=== PATIENT | male | born 1985 | race Caucasian/White ===

== ENCOUNTER 2016-08-08 03:22 | Emergency (ER) | payer MEDICAID | END 2016-08-08 04:50 | disposition home or self-care (01) | LOC: D.ER 03:22 | DX: S01.81XA Laceration without foreign body of other part of head, initial encounter (principal); Y04.2XXA Assault by strike against or bumped into by another person, initial encounter; Y93.89 Activity, other specified; Y92.89 Other specified places as the place of occurrence of the external cause; G40.909 Epilepsy, unspecified, not intractable, without status epilepticus; F17.200 Nicotine dependence, unspecified, uncomplicated ==

== ENCOUNTER 2017-09-17 18:07 | Emergency (ER) | payer MEDICAID | END 2017-09-17 19:41 | disposition home or self-care (01) | LOC: D.ER 18:07 | DX: B02.9 Zoster without complications (principal) ==

== ENCOUNTER 2017-12-06 08:37 | Emergency (ER) | payer MEDICAID ==
[~2017-12-06] VITALS: Ht 182.9 cm; Wt 75.0 kg
[2017-12-06 09:02] VITALS: Ht 182.9 cm; Wt 75.0 kg
[2017-12-06] MEDS ORDERED: ZOVIRAX800 MG PO (10:46)
[2017-12-06] MEDS ORDERED: ULTRAM50 MG PO (10:46)
[2017-12-06 11:08] VITALS: BP 124/68
== END 2017-12-06 11:09 | disposition home or self-care (01) ==
LOC: D.ER 08:37
DX: B02.9 Zoster without complications (principal); F17.200 Nicotine dependence, unspecified, uncomplicated

== ENCOUNTER 2017-12-14 14:56 | Emergency (ER) | payer MEDICAID ==
[~2017-12-14] VITALS: Ht 182.9 cm; Wt 129.5 kg
[~2017-12-14 14:56] MED LIST: ULTRAM50 MG PO; ZOVIRAX800 MG PO
[2017-12-14 15:06] VITALS: BP 128/76; Ht 182.9 cm; Wt 129.5 kg
== END 2017-12-14 15:30 | disposition left against medical advice (07) ==
LOC: D.ER 14:56
DX: B02.9 Zoster without complications (principal); F17.200 Nicotine dependence, unspecified, uncomplicated

== ENCOUNTER 2018-04-11 05:30 | Emergency (ER) | payer MEDICAID ==
[~2018-04-11] VITALS: Ht 182.9 cm; Wt 81.5 kg
[2018-04-11 05:36] VITALS: Ht 182.9 cm; Wt 81.5 kg
[2018-04-11] MEDS ORDERED: KEFLEX500 MG PO (05:54)
[2018-04-11 06:03] VITALS: BP 145/82
== END 2018-04-11 06:04 | disposition home or self-care (01) ==
LOC: D.ER 05:30
DX: L72.3 Sebaceous cyst (principal); F17.200 Nicotine dependence, unspecified, uncomplicated